=== PATIENT | female | born 1985 | race Two or more races ===

== ENCOUNTER 2018-02-20 02:47 | Emergency (ER) | payer MEDICAID ==
[~2018-02-20] VITALS: Ht 167.6 cm; Wt 104.3 kg
[2018-02-20 03:48] VITALS: BP 158/83
== END 2018-02-20 04:25 | disposition left against medical advice (07) ==
LOC: ER 02:49
DX: S71.111A Laceration without foreign body, right thigh, initial encounter (principal); Z53.21 Procedure and treatment not carried out due to patient leaving prior to being seen by health care provider; X58.XXXA Exposure to other specified factors, initial encounter; Y93.39 Activity, other involving climbing, rappelling and jumping off; Y99.8 Other external cause status; Y92.89 Other specified places as the place of occurrence of the external cause

== ENCOUNTER 2018-02-21 06:57 | Emergency (ER) | payer MEDICAID ==
[~2018-02-21] VITALS: Ht 167.6 cm; Wt 104.3 kg
[2018-02-21 07:15] VITALS: BP 148/98
[2018-02-21] MEDS ORDERED: LIDOCAINE 1% HCL (LOCAL ANESTH.) INJ 20ML MDV IJ ONE (08:15)
== END 2018-02-21 08:50 | disposition home or self-care (01) ==
LOC: ER 06:57
DX: S71.111A Laceration without foreign body, right thigh, initial encounter (principal); F17.210 Nicotine dependence, cigarettes, uncomplicated; W22.8XXA Striking against or struck by other objects, initial encounter; Y93.44 Activity, trampolining; Y99.8 Other external cause status; Y92.89 Other specified places as the place of occurrence of the external cause
CPT/HCPCS: 12005; 99283; J2001